=== PATIENT | female | born 1980 | race Caucasian/White ===

== ENCOUNTER 2017-10-26 08:39 | Outpatient (CLI) | payer OTHER | END 2017-10-26 08:40 | disposition home or self-care (01) | LOC: BICULT 08:39 | PROVIDERS: ATTEND Family Medicine | DX: K81.1 Chronic cholecystitis (principal); K80.20 Calculus of gallbladder without cholecystitis without obstruction | CPT/HCPCS: 76700 ==

== ENCOUNTER 2017-12-17 10:31 | Outpatient (CLI) | payer OTHER ==
[2017-12-17 11:08] LABS: #Basophils 0.1 thou/uL (0.0-0.2); #Eosinphils 0.3 thou/uL (0.0-0.7); #Lymphocytes 1.6 thou/uL (1.20-3.40); #Monocytes 0.3 thou/uL (0.11-0.59); #Neutrophils 4.5 thou/uL (1.40-6.50); %Basophils 0.9 % (0.0-1.0); %Eosinophils 3.8 % (0.0-10.0); %Lymphocytes 23.5 % (21.0-51.0); %Monocytes 5.1 % (0.0-10.0); %Neutrophils 66.7 % (42.0-75.0); Hemoglobin 13.5 g/dL (12.0-16.0); Mean Corpuscular HGB CONC 33.6 g/dL (32.0-36.0); Mean Corpuscular Hemoglobin 30.4 pg (27.0-31.0); Mean Corpuscular Volume 90.3 fl (81.0-99.0); Platelet Count 176 thou/uL (130-400); RBC Distribution Width 11.4 % (11.5-14.5); Red Blood Cell (RBC) Count 4.44 mill/uL (4.20-5.40); White Blood Cell (WBC) Count 6.8 thou/uL (4.8-10.8)
[2017-12-17 11:18] LABS: BHCG - Serum Negative (NEGATIVE); Pregs Control Background? CLEAR/WHITE (CLR/WHITE); Pregs Control Bar Appear? YES (CONTROL BAR)
[2017-12-17 11:32] LABS: ALT (SGPT) 15 U/L (8-55); AST (SGOT) 16 U/L (5-34); Albumin 4.6 g/dL (3.5-5.0); Alkaline Phosphatase 67 U/L (40-150); Anion Gap 11 mmol/L (10-20); BUN (Urea Nitrogen) 17 mg/dL (7.0-18.7); Bilirubin, Total 0.6 mg/dL (0.2-1.2); Calc. Creatinine Clearance 0 mL/min (70-130); Calcium 9.6 mg/dL (7.8-10.44); Carbon Dioxide 25 mmol/L (22-29); Chloride 104 mmol/L (98-107); Estimated GFR-MDRD 77; Globulin 3.1 g/dL (2.4-3.5); Glucose 93 mg/dL (70-105); Potassium 4.4 mmol/L (3.5-5.1); Protein, Total 7.7 g/dL (6.0-8.3); Sodium 136 mmol/L (136-145)
== END 2017-12-17 10:32 | disposition home or self-care (01) ==
LOC: LABBT 10:31
PROVIDERS: ATTEND Surgery
DX: Z01.812 Encounter for preprocedural laboratory examination (principal); K80.00 Calculus of gallbladder with acute cholecystitis without obstruction
CPT/HCPCS: 80053; 84703; 85025

== ENCOUNTER 2017-12-21 06:07 | Day surgery (SDC) | payer OTHER ==
[2017-12-17 10:59] VITALS: BMI 24.9
[2017-12-21] MEDS ORDERED: CEFAZOLIN/Water 2 GM/20 ML SYRINGE ONE (06:16)
[2017-12-21] MEDS ORDERED: Fentanyl 100 MCG/2 ML VIAL ONE ×2 (06:26→09:26)
[2017-12-21] MEDS ORDERED: HYDROmorphone 0.5 MG/0.5 ML SYRINGE ONE (06:26)
[2017-12-21] MEDS ORDERED: Iothalamate Meglumine 60% 50 ML VIAL FS ONE (06:30)
[2017-12-21] MEDS ORDERED: Bupivacaine/Epinephrine 0.25% 30 ML VIAL ONE (06:30)
[2017-12-21] MEDS ORDERED: Scopolamine 1.5 mg/72 hour Patch ONE (06:56)
--- NOTE | 2017-12-21 09:24 | RAD ---
INTRAOPERATIVE CHOLANGIOGRAM: Date: 12/21/17 HISTORY: 37-year-old female with history of laparoscopic cholecystectomy. FINDINGS: Single portable fluoroscopic spot film is presented for interpretation. Contrast media is injected in the cystic duct remnant with filling of the common bile duct and common hepatic duct. The intrahepat ic ducts are not completely filled and not imaged. There is a question of a very small filling defect in the distal common bile duct. There is emptying into the duodenum. IMPRESSION: Questionable small filling defect in the distal common bile duct with emptying into the duodenum and no significant proximal dilatation or obstruction. POS: CHAUNCEY
[2017-12-21] MEDS ORDERED: PROPOFOL 200 MG/20 ML VIAL ONE (15:57)
[2017-12-21] MEDS ORDERED: Dexamethasone 20 MG/5 ML VIAL ONE (15:57)
[2017-12-21] MEDS ORDERED: Glycopyrrolate 0.2 MG/ML 5 ML SYRINGE ONE (15:57)
[2017-12-21] MEDS ORDERED: Succinylcholine Chloride 20 MG/ML 10 ml SYRINGE FS ONE (15:57)
[2017-12-21] MEDS ORDERED: Lidocaine 1% PF 5 ML VIAL ONE (15:57)
[2017-12-21] MEDS ORDERED: Ondansetron HCl/PF 4 MG/2 ML Vial ONE (15:57)
--- NOTE | 2017-12-26 09:56 | PDOC.OP ---
Operative Note - Operative Note Operative Note: PROCEDURE: Laparoscopic cholecystectomy with intraoperative cholangiogram SURGEON: Bertha Parker M.D. COTTON BAG SEWER: Roc Don, MS 3 DATE OF PROCEDURE: 12/21/2017 PREOPERATIVE DIAGNOSIS: Cholelithiasis and cholecystitis, possible choledocholithiasis: POSTOPERATIVE DIAGNOSIS: Cholelithiasis and cholecystitis HISTORY: Patient with symptomatic gallstones with possible choledocholithiasis noted on an ultrasound. Recommendation was made to proceed with laparoscopic cholecystectomy with intraoperative cholangiogram. FINDINGS: White walled gallbladder without significant adhesions. Normal intraoperative cholangiogram. PROCEDURE IN DETAIL: After informed consent was obtained and appropriate preoperative antibiotics were administered, the patient was taken to the operating room and placed in the supine position and general endotracheal anesthesia was administered. The stomach was decompressed with an OG tube and the abdomen was prepped and draped in standard sterile fashion. Local anesthesia was infused to the skin and subcutaneous tissues at the umbilical level. A transverse skin incision was made. The fascia was elevated and a Veress needle was placed into the abdominal cavity without difficulty. Opening pressure was less than 5 and carbon dioxide gas easily insufflated to an intra- abdominal pressure of 15, which the patient tolerated well. The Veress needle was withdrawn and a [place] port advanced under direct vision. The abdominal cavity was carefully examined. There was no evidence of Veress needle or of trocar injury. Local anesthesia was infused to the skin and subcutaneous tissues at the epigastric, right upper quadrant, and right lateral abdominal sites and trocars were placed under direct vision of the laparoscope. The fundus of the gallbladder was grasped and retracted superiorly. The infundibulum was grasped and retracted laterally. The serosa was stripped inferiorly at the level of the neck of the gallbladder exposing the cystic duct and artery which were traced clearly to their insertion in the gallbladder. These were dissected free circumferentially and the cystic duct was clipped at the level of the neck of the gallbladder. The cystic artery was clipped but not divided. An incision was made in the cystic duct inferior to the clip and the cystic duct was palpated with no stones palpable. Clear bile was seen to flow from the cystic duct incision. A cholangiogram catheter was introduced and placed into the cystic duct and secured with a clip. A cholangiogram was obtained which showed an adequate length of cystic duct. There was normal filling of the common bile duct with free flow of contrast into the duodenum and no filling defects noted on dynamic real time imaging. There was normal retrograde flow into the common hepatic duct beyond the level of the bifurcation without filling defects. The cholangiogram catheter was removed and the cystic duct clipped below the incision in the cystic duct. The cystic duct was divided between these clips and the previously placed clip. The cystic artery was divided between the previously placed clips. The gallbladder was then dissected free of the gallbladder bed using hook electrocautery. Prior to complete removal of the gallbladder from the gallbladder bed, the area of the cystic duct and artery stumps was examined. The clips were in good position completely across these structures and there was no bleeding and no leakage of bile. The gallbladder was then placed into an EndoCatch bag and drawn out through the epigastric incision. The epigastric trocar was replaced and the operative site easily irrigated to clear. There was no significant bleeding or spillage of bile. The epigastric trocar was removed and the fascia closed under direct laparoscopic vision with a 0 Vicryl suture on a GraNee needle in a figure -of-eight manner with excellent technical result. The right upper quadrant and right lateral abdominal trocars were removed and hemostasis verified. Carbon dioxide gas was allowed to desufflate through the umbilical trocar which was then removed. The skin incisions were closed with 4-0 subcuticular Monocryl sutures and Dermabond dressings were placed. The patient was extubated and taken to the recovery room in good condition. There were no complications. ESTIMATED BLOOD LOSS: Minimal. SPECIMEN : Gallbladder and contents.
== END 2017-12-21 11:41 | disposition home or self-care (01) ==
LOC: SDC 06:07
PROVIDERS: ATTEND Surgery
PROC: BF13YZZ Fluoroscopy of Gallbladder and Bile Ducts using Other Contrast (ICD-10-PCS; principal; 2017-12-21)
PROC: 0FT44ZZ Resection of Gallbladder, Percutaneous Endoscopic Approach (ICD-10-PCS; principal; 2017-12-21)
DX: K80.10 Calculus of gallbladder with chronic cholecystitis without obstruction (principal); J45.909 Unspecified asthma, uncomplicated; K21.9 Gastro-esophageal reflux disease without esophagitis; Z88.8 Allergy status to other drugs, medicaments and biological substances; Z79.899 Other long term (current) drug therapy; Z87.891 Personal history of nicotine dependence
CPT/HCPCS: 47532; 88304; 96374; J0131; J1100; J1170; J1610; J2001; J2405; J2704; J3010; Q9961

== ENCOUNTER 2019-04-28 04:38 | Day surgery (SDC) | payer OTHER ==
[2019-04-28 05:03] VITALS: BP 138/85; TEMP 98.7; BMI 29.8
[2019-04-28] MEDS ORDERED: hydrALAZINE 20 MG/ML VIAL SLOW IVP PRN (05:24)
--- NOTE | 2019-04-28 05:26 | PDOC.LDHP ---
Labor and Delivery H&P Chief complaint: contractions HPI: Patient of Dr campbell Location: [facility] Time: 524 C/O: CTX at 35 weeks 40 yo at 35 weeks 6 days here with irreguylar ctx. No LOF, no VB, good FM. No trauma, no sex in 24 hrs. Review of Systems: complete ROS performed and as per HPI Current gestational age (weeks): 36 (6 days) Due date: 05/27/19 Dating criteria: last menstrual period Grav: 5 Para: 2 OB History Details: All Current complications: gestational diabetes (A1) Abnormal US findings: No Past Medical History: HXASthma and anxiety Current medications: pre-ashley vitamins Previous surgical history: cholecystectomy Allergies/Adverse Reactions: Allergies Allergy/AdvReac Type Severity Reaction Status Date / Time ibuprofen [From Motrin] Allergy Severe Verified 04/28/19 04:58 acetaminophen [From Tylenol] AdvReac Severe Verified 04/28/19 04:58 - Physical Exam Vital signs reviewed and normal: yes Abnormal vital signs: 138/85 General: NAD Heart: RRR Lungs: CTAB Abdomen: gravid FHT: category 1 [facility] contractions every: irregular every 4 min - Assessment threatened PTL at 35 weeks 6 days..states GBS pos - Plan Plan: observation in L&D (chcek CX, observation. If labor diagnosed, will need celestone as under 36 weeks 6 days; and PNG)
--- NOTE | 2019-04-28 05:38 | PDOC.EVN ---
Event Note - Event Note Event Note: Exam per Summer: /-2 So we will observe for 2 hours at least and give celestone as under 36 weeks 6 days...hold on PCN until true labor DX. Effect of celestone on sugars reviewed
[2019-04-28] MEDS ORDERED: Betamet Acet/Betamet Na Ph 30 MG/5 ML VIAL IM SCH (06:00)
--- NOTE | 2019-04-28 07:42 | PDOC.EVN ---
Event Note - Event Note Event Note: recheck by RN: no cervical change NST reactive OK for DC Second steroid tomorrow at [facility]
[2019-04-28] MEDS ORDERED: FLU VACC QS2019-20(6MOS UP)/PF 60 MCG/0.5 ML SYRINGE IM ONE (20:00)
== END 2019-04-28 07:55 | disposition home or self-care (01) ==
LOC: L&D/OP 04:38
PROVIDERS: ATTEND Student in an Organized Health Care Education/Training Program
DX: O47.03 False labor before 37 completed weeks of gestation, third trimester (principal); O24.410 Gestational diabetes mellitus in pregnancy, diet controlled; O09.523 Supervision of elderly multigravida, third trimester; Z3A.35 35 weeks gestation of pregnancy; Z88.6 Allergy status to analgesic agent
CPT/HCPCS: 87077; 87086; J0702

== ENCOUNTER 2019-05-05 10:44 | Day surgery (SDC) | payer OTHER ==
[2019-05-05 11:03] VITALS: BMI 30.4
[2019-05-05] MEDS ORDERED: hydrALAZINE 20 MG/ML VIAL SLOW IVP PRN (12:10)
--- NOTE | 2019-05-05 12:42 | HP ---
PRIMARY OB: Carisa Duke MD CHIEF COMPLAINT: Abdominal pain. HISTORY OF PRESENT ILLNESS: The patient is a 39-year-old, G5, P2 female with an intrauterine at 36 weeks and 6 days, presenting to Labor and Delivery with 7 or 8 hours of uterine contractions. The patient reports she started having contractions about 3 o'clock this morning. She feels them as closest to every 4 to 5 minutes apart. She says that there are pain associated with them, but they have not increased in intensity or frequency since that time. She reports that she was last seen by Dr. Duke on and was 3 cm dilated at that time. The patient denies any vaginal bleeding or leakage of fluid. She denies any recent illness, fever, fall, headache, chest pain, shortness of breath, nausea, vomiting, diarrhea, constipation, hip problems, knee problems, or muscle weakness. She denies vaginal bleeding or leakage of fluid or any new rashes. PAST MEDICAL HISTORY: Asthma, anxiety, A1 gestational diabetes with this controlled, and diagnosed recently with a UTI. PAST SURGICAL HISTORY: Cholecystectomy. ALLERGIES: IBUPROFEN AND ACETAMINOPHEN. SOCIAL HISTORY: Denies drug, alcohol, or tobacco use. MEDICATIONS: Amoxicillin. OB LABS: Unavailable at time of dictation. REVIEW OF SYSTEMS: Per HPI. PHYSICAL EXAMINATION: VITAL SIGNS: Blood pressure is 130/81, heart rate of 105, respiratory rate of 18, saturating 96% on room air, and temperature 98.2. GENERAL: She appears to be in no acute distress. She is alert, oriented, cooperative, and pleasant to interact with. HEAD: Normocephalic and atraumatic. LUNGS: Clear to auscultation bilaterally. HEART: She has regular rate and rhythm. ABDOMEN: Gravid, soft, and nontender. EXTREMITIES: Nontender and nonedematous. CERVICAL: Per nursing staff is 350 and -2 station. heart tracing shows the fetus with a baseline in the 150s with moderate long-term variability, positive 15 x 15 accelerations, no decelerations. Contractions are irregular every 2 to 7 minutes apart, did not appear to be visibly appeared to be painful to the patient. ASSESSMENT AND PLAN: The patient is a 39-year-old female, who is having contractions and may be entering latent labor. Fetus has a category 1 tracing and reactive NST. The patient gave the option to wait an hour and to be reexamined or to be discharged home as the patient's contractions have not intensified over the last 9 hours. The patient plans to return to work, which is in this facility and has been given labor precautions. Job ID: [id number]
== END 2019-05-05 11:30 | disposition home health service (06) ==
LOC: L&D/OP 10:44
PROVIDERS: ATTEND Student in an Organized Health Care Education/Training Program
DX: O47.03 False labor before 37 completed weeks of gestation, third trimester (principal); O24.410 Gestational diabetes mellitus in pregnancy, diet controlled; O99.513 Diseases of the respiratory system complicating pregnancy, third trimester; J45.909 Unspecified asthma, uncomplicated; O23.43 Unspecified infection of urinary tract in pregnancy, third trimester; Z3A.36 36 weeks gestation of pregnancy; Z79.2 Long term (current) use of antibiotics; Z88.8 Allergy status to other drugs, medicaments and biological substances
CPT/HCPCS: 99282

== ENCOUNTER 2019-05-17 19:28 | Day surgery (SDC) | payer OTHER ==
[2019-05-17 20:00] VITALS: BMI 31.2
[2019-05-17] MEDS ORDERED: hydrALAZINE 20 MG/ML VIAL SLOW IVP PRN (20:06)
--- NOTE | 2019-05-17 20:34 | PDOC.FPROB ---
FMR OB H&P: HPI - History of Present Illness Chief Complaint: ctx Indentification: 39 y/o @ 38.4 WGA History of Present Illness: presents for ctx that have been every 3 minutes for the past 2 hours, but prior to that have been on and off all day. Denies any vaginal bleeding, vaginal d/c, LOF. Endorses good movement. Primary Care Physician: Dr. Duke FMR OB H&P: Current - Care : 5 Para: 2021 Gestational age: 38w4d Due date: 05/27/19 - OB Labs Blood type: A RH: positive Antibody Screen: negative HIV: negative RPR: negative HepBsAg: negative Quad screen: negative Urine drug screen: negative Gonorrhea: negative Chlamydia: negative GBS: negative FMR OB H&P: History - Past Medical History PMH: Asthma, GERD - OB History OB History: 2 prior term . 4th degree laceration in 1st delivery of 8 lb baby 2 prior SAB's - Surgical History Sx History: Cholecystectomy - Social History Social History: Denies tobacco, EtOH, or drug use - Family History Family History: DM, HTN, cancer FMR OB H&P: Medications - Current Home Medications: Medication Instructions Recorded Confirmed Type Albuterol Sulfate [Proair HFA] 1 puff INH PRN PRN 12/17/17 05/17/19 History Fexofenadine/Pseudoephedrine 1 each PO DAILY 12/17/17 05/17/19 History [Marianne-D 24 Hour Tablet] Fluticasone/Vilanterol [Breo 1 puff INH DAILY 12/17/17 05/17/19 History Ellipta 200-25 Mcg INH] Pnv No.95/Ferrous Fum/Folic AC 1 each PO DAILY 04/28/19 05/17/19 History [ Formula] Omeprazole Magnesium [Prilosec] 1 pkt PO DAILY 05/05/19 05/17/19 History Allergies/Adverse Reactions: Allergies Allergy/AdvReac Type Severity Reaction Status Date / Time ibuprofen [From Motrin] Allergy Severe Verified 04/28/19 04:58 acetaminophen [From Tylenol] AdvReac Severe Verified 04/28/19 04:58 FMR OB H&P: ROS - Review of Systems General: denies: fever/chills, weight/appetite/sleep changes Eyes: denies: vision changes, double vision ENT: denies: nasal congestion, sore throat Cardiovascular: reports: edema. denies: chest pain Respiratory: denies: cough, shortness of breath Gastrointestinal: reports: nausea. denies: vomiting, diarrhea Genitourinary (Female): reports: contractions. denies: dysuria, hematuria, vaginal discharge, vaginal bleeding, vaginal pressure Musculoskeletal: denies: pain, swelling Neurologic: denies: numbness, weakness Integumentary: denies: itching, rash Hematologic/Lymphatic: denies: prolonged or excessive bleeding, enlarged lymph nodes Psychological: denies: depression, anxiety FMR OB H&P: Vital Signs - Maternal Vital signs: BP 124/77, HR 96, RR 16 - Heart Tones Baseline: 160 Variability: moderate Acceleration: present Deceleration: absent Category: category 1 [place] contractions every: 5-9 minutes FMR OB H&P: Physical Exam - Physical Exam General: NAD, awake, alert and oriented HEENT: normocephalic and atraumatic, MMM, conjunctiva clear, no scleral icterus , grossly normal vision, grossly normal hearing Neck: supple, no LAD Heart: pulses present, other (1+ pedal edema in BLE) General: no respiratory distress Musculoskeletal: normal gait and station, pulses present Neurological: no tremor, no focal deficit Skin: good tugor, capillary refill <2 seconds Lymphatic: no unusual bruising or bleeding, no purpura Psychiatric: intact recent and remote memory, good judgement and insight - Pelvic Exam SVE: /-2 FMR OB H&P: A/P - Problem List (1) Uterine contractions Current Visit: Yes Status: Acute Code(s): RCV1561 - Assessment and Plan: SVE - Pt elidia irregularly -Will recheck in 2 hours and d/c home if no change (2) Term Current Visit: Yes Status: Acute Code(s): Z34.90 - ENCNTR FOR SUPRVSN OF NORMAL , UNSP, UNSP TRIMESTER Assessment and Plan: Plan as above Disposition: Dispo pending next cervical check Discussion: Date/Time: 05/17/192031 This H&P was discussed with Dr. Leon who agrees with the above documentation and plan. Signature: Isabel Bailey MD, PGY-3 Addendum - Attending - Attending Attestation Date/Time: 05/17/192045 I personally evaluated the patient and discussed the management with Dr. Bailey. Will observe the pt. for UCs and cervical change. I agree with the History, Examination, Assessment and Plan documented above.
--- NOTE | 2019-05-17 22:07 | PDOC.BPN ---
<Isabel Bailey - Last Filed: 05/17/19 22:07> - Brief Progress Note Pt cervical check unchanged. Contractions have spaced out and pt is not feeling them very much anymore. Will d/c home with labor precautions <Vidal Leon - Last Filed: 05/17/19 22:17> Addendum - Attending - Attending Attestation Date/Time: 05/17/19 [id number] I personally evaluated the patient and discussed the management with Dr. Bailey. I agree with the Examination, Assessment and Plan documented above.
== END 2019-05-17 22:12 | disposition home or self-care (01) ==
LOC: L&D/OP 19:28
PROVIDERS: ATTEND Student in an Organized Health Care Education/Training Program
DX: O60.03 Preterm labor without delivery, third trimester (principal); O99.513 Diseases of the respiratory system complicating pregnancy, third trimester; J45.909 Unspecified asthma, uncomplicated; Z3A.38 38 weeks gestation of pregnancy; Z88.6 Allergy status to analgesic agent
CPT/HCPCS: 99283

== ENCOUNTER 2019-05-24 05:30 | Inpatient (IN) | payer OTHER ==
[2019-05-24] MEDS ORDERED: Penicillin G Potassium 5 MILL.UNITS in Sodium Chloride 0.9% 100 ML IVPB SCH (06:00)
[2019-05-24] MEDS ORDERED: Diphenoxylate HCl/Atropine Tablet PO PRN (06:04)
[2019-05-24] MEDS ORDERED: Ondansetron PF 4 MG/2 ML Vial IVP PRN ×2 (06:04→10:50)
[2019-05-24] MEDS ORDERED: Carboprost 250 MCG/ML AMP IM PRN (06:04)
[2019-05-24] MEDS ORDERED: Misoprostol 200 MCG TAB PR PRN (06:04)
[2019-05-24] MEDS ORDERED: Acetaminophen 500 MG TAB PO PRN (06:04)
[2019-05-24] MEDS ORDERED: Butorphanol Tartrate 1 MG/ML VIAL SLOW IVP PRN (06:04)
[2019-05-24] MEDS ORDERED: NS / Oxytocin 40 units/1000ml 1,000 ML IV PRN (06:04)
[2019-05-24] MEDS ORDERED: Methylergonovine 0.2 MG/ML VIAL IM PRN (06:04)
[2019-05-24] MEDS ORDERED: Lidocaine 1% (PF) 30 ML VIAL SC PRN (06:04)
[2019-05-24] MEDS ORDERED: NS w/ Oxytocin 10 units 500 ML IV SCH (06:04)
[2019-05-24] MEDS ORDERED: Promethazine HCl 25 MG/ML VIAL IM PRN ×2 (06:04→10:50)
[2019-05-24] MEDS ORDERED: hydrALAZINE 20 MG/ML VIAL SLOW IVP PRN ×2 (06:04→18:33)
[2019-05-24 06:43] VITALS: BMI 31.2
[2019-05-24 06:48] LABS: Hemoglobin 9.5 g/dL (12.0-16.0); Mean Corpuscular HGB CONC 33.4 g/dL (32.0-36.0); Platelet Count 182 thou/uL (130-400); RBC Distribution Width 14.3 % (11.5-14.5); Red Blood Cell (RBC) Count 3.78 mill/uL (4.20-5.40); White Blood Cell (WBC) Count 9.1 thou/uL (4.8-10.8)
[2019-05-24] MEDS: Lactated Ringer's 1,000 ML IV SCH ×2 (06:50→12:20)
[2019-05-24 07:25] LABS: HBSAg Index 0.17 S/CO (0-0.99); Hep B Surf Ag Non-Reactive S/CO (NonReactive)
[2019-05-24 07:26] LABS: Syphilis Antibody Nonreactive (Nonreactive); Syphilis Antibody Index 0.05 S/CO (<1.00 Non-Reactive)
[2019-05-24] MEDS ORDERED: Fentanyl 4 mcg/Bup 0.1% Cadd 100 ML ONE (08:52)
--- NOTE | 2019-05-24 08:59 | PDOC.LDHP ---
Labor and Delivery H&P Chief complaint: scheduled induction HPI: 39yo at 39w3d by LMP here for IOL due to GDM. No complaints. Current gestational age (weeks): 39 Due date: 05/27/19 Dating criteria: last menstrual period Grav: 5 Para: 2 Current complications: gestational diabetes (diet controlled) Abnormal US findings: No Past Medical History: asthma, gerd Current medications: pre-ashley vitamins, other (breo ellipta, suni) Previous surgical history: cholecystectomy (, D&C) Allergies/Adverse Reactions: Allergies Allergy/AdvReac Type Severity Reaction Status Date / Time ibuprofen [From Motrin] Allergy Severe Verified 05/24/19 06:21 acetaminophen [From Tylenol] AdvReac Severe Verified 05/24/19 06:21 midazolam [From Versed] AdvReac Intermediate Verified 05/24/19 06:21 Social history: none - Physical Exam Vital signs reviewed and normal: yes General: NAD Heart: RRR Lungs: CTAB Abdomen: gravid Extremeties: no edema FHT: category 1 [place] contractions every: 4min - Vaginal Exam cm dilated: 4 Effacement: 50% Station: -2 (arom clear) - OB Labs Blood type: A RH: positive Antibody Screen: negative HIV: negative RPR: negative HEPSAg: negative 1 hour GCT: positive 3 hour GTT: positive for GDM GBS: positive Urine drug screen: negative Rubella: immune - Assessment L&D Assessment: medically indicated induction - Plan Plan: admit to L&D, labor augmentation if indicated, GBS antibiotic prophylaxis , informed consent obtained, anesthesia consult for pain management -: accuchecks for GDM
[2019-05-24] MEDS ORDERED: Acetaminophen 325 MG TAB PO PRN (10:50)
[2019-05-24] MEDS ORDERED: ePHEDrine/0.9% NaCl/PF SYRINGE 50 mg/10 ml SLOW IVP PRN (10:50)
[2019-05-24] MEDS ORDERED: Naloxone HCl 0.4 mg/ml Vial IVP PRN ×2 (10:50)
[2019-05-24] MEDS ORDERED: diphenhydrAMINE 50 MG/ML VIAL IVP PRN (10:50)
[2019-05-24] MEDS ORDERED: Lactated Ringer's 500 ML IV PRN (10:50)
[2019-05-24] MEDS ORDERED: Communication Order-Pharmacy FS SCH (11:00)
[2019-05-24] MEDS ORDERED: Fentanyl 4 mcg/Bupivacaine 0.1% Cassette 100 ML EPIDURAL SCH (11:00)
[2019-05-24] MEDS ORDERED: Bupivacaine 0.25% HCL 30 ML VIAL ONE (11:11)
[2019-05-24] MEDS: Penicillin G 2.5 MILL.units 2.5 MILL.UNITS in Premix Bag 1 BAG IVPB SCH ×2 (12:16→17:44)
--- NOTE | 2019-05-24 12:59 | PDOC.LDPN ---
Labor & Delivery Progress Note - Subjective Subjective: comfortable - Objective Vital signs reviewed and normal: yes General: NAD Uterine fundus: non tender Dilation: 7 Effacement: 90% Station: -1 FHT: category 1 [place] contractions every: 3-4min Plan: labor augmentation
[2019-05-24 14:12] LABS: Actual Bicarbonate (HCO3a) 19.3 mEq/L (22-28); Analyzer IN Cardio OR; Base Excess (BEa) -6.6 mEq/L (-2.0 to +3.0)
--- NOTE | 2019-05-24 14:18 | PDOC.OPDEL ---
OB Operative/Delivery Note Delivery Dr/Surgeon: Srikanth Assist: n/a Pre-Delivery Diagnosis: medically indicated induction (GDM), non-reassuring tracing Procedure/Post Delivery Dx: operative vaginal delivery (VAVD) Weeks gestation: 39 Anesthesia: epidural - Findings A Sex: female - Additional Findings/Plan Placenta delivered: spontaneous Repaired Obstetrical Laceration: episiotomy (mediolateral 2nd degree repaired with 2-0 vicryl) Estimated blood loss: 200cc Compilations/Other Findings: terminal bradycardia to 50s, difficulty delivering head with ritgens, mediolateral episiotomy cut, continued difficulty delivering head with ritgens, vacuum applied, see procedure checklist for full details. Head delivered with one pull. Shoulders impacted, right shoulder anterior, delivered with suprapubic and elpidio, total time on perineum < 1min. floppy, to warmer where natali awaited. Post delivery plan: routine recovery
[2019-05-24] MEDS ORDERED: Milk Of Magnesia 30 ML UDCUP PO PRN (18:33)
[2019-05-24] MEDS ORDERED: Bisacodyl 10 MG SUPP PR PRN (18:33)
[2019-05-24] MEDS ORDERED: NS / Oxytocin 40 units/1000ml 1,000 ML IV SCH (18:45)
[2019-05-24] MEDS ORDERED: Benzocaine-Menthol 82.5 ML CAN TOP PRN (21:27)
[2019-05-24] MEDS: Docusate Calcium (SURFAK) 240 MG CAP PO SCH (21:33)
[2019-05-25 05:04] LABS: Hemoglobin 8.3 g/dL (12.0-16.0)
[2019-05-25] MEDS ORDERED: Ferrous Sulfate 325 MG TAB PO SCH (08:00)
[2019-05-25] MEDS: traMADol HCl 50 MG TAB PO PRN ×2 (08:34→15:01)
[2019-05-25] MEDS: Docusate Calcium (SURFAK) 240 MG CAP PO SCH (08:34)
[2019-05-25] MEDS ORDERED: Adacel (T-DAP) 0.5 ML SYRINGE IM ONE (09:00)
[2019-05-25 11:53] VITALS: BP 129/70; TEMP 97.8
--- NOTE | 2019-05-25 21:45 | DIS ---
DATE OF ADMISSION: 05/24/2019 DATE OF DISCHARGE: 05/25/2019 ADMITTING DIAGNOSES: 1. Intrauterine at 39 weeks. 2. Elective induction of labor. 3. Anemia, chronic. DISCHARGE DIAGNOSES: 1. Intrauterine at 39 weeks. 2. Elective induction of labor. 3. Anemia, chronic. PROCEDURE: Vacuum-assisted vaginal delivery for shoulder dystocia. HOSPITAL COURSE: The patient is a 39-year-old female, who was admitted yesterday with an intrauterine at 39 weeks and 3 days for an elective induction of labor. Her hospital course was complicated by shoulder dystocia and resulting in a vacuum-assisted vaginal delivery. This morning is day 1. The patient reports she is tolerating p.o., having good pain control, and is having decreased lochia, and tolerating p.o. on her own and voiding on her own. PHYSICAL EXAMINATION: VITAL SIGNS: Today, blood pressure is 123/70, temperature 98.3, pulse of 93, respiratory rate 18. GENERAL: She appears to be in no acute distress. She is alert, oriented, cooperative, and pleasant to interact with. Fundus is firm at the umbilicus. EXTREMITIES: Nontender with minimal symmetrical edema. LABORATORY DATA: Postdelivery is hemoglobin is 8.3, hematocrit 24.7. DISPOSITION: The patient is being discharged to home. DISCHARGE INSTRUCTIONS: She has instructions to follow up with Dr. Duke in 6 weeks or sooner if she experiences fever, increasing pain or bleeding. The patient will be discharged with ibuprofen and [id number] iron. Job ID: [id number]
--- NOTE | 2019-05-28 04:53 | PQF ---
PASCUAL [place]OV[place] JANELLE [id number] [address] [place] [address] [id number] CLINICAL DOCUMENTATION CLARIFICATION FORM: POST DISCHARGE Addendum to original discharge summary date: ____ Late entry note date: __ DATE: 05/28/19 ATTN: Carisa Patterson Please exercise your independent, professional judgment in responding to the clarification form. Clinical indicators are provided on the bottom of this form for your review Please check appropriate box(s): [ ] Acute blood loss anemia [ ] Post-op anemia related to acute blood loss (X ] Chronic Anemia: [ ] Blood loss [ ] Hemolytic [ ] Simple [ ] Due to Vitamin B12 Deficiency [ X] Other _iron deficiency [ ] Anemia of Chronic Disease (please specify) [ ] Other diagnosis [ ] Unable to determine In addition, please specify: Present on Admission (POA): [ ] Yes [ ] No [ ] Unable to determine For continuity of documentation, please document condition throughout progress notes and discharge summary. Thank You. CLINICAL INDICATORS - SIGNS / SYMPTOMS / LABS OB Operative and Delivery Note p1 05/24 Estimated blood loss 200cc Laboratory Hematology 05/24 Hgb 9.5, Hct 28 .3 Laboratory Hematology 05/25 Hgb 8.3, Hct 24.7 RISK FACTORS OB Operative and Delivery Note p1 05/24 s/p VAVD OB Operative and Delivery Note p1 05/24 s/p Episiotomy with 2nd degree repaired Discharge summary 05/25- Chronic Anemia TREATMENTS: SEP 16 Ferrous Sulfate 325 Laboratory Hematology ordered 05/24 (This form is maintained as a part of the permanent medical record) 2014 [employer]. All Rights Reserved [email or web address] [not provided] MTDD
== END 2019-05-25 16:30 | disposition home or self-care (01) | DRG 807 ==
LOC: L&D 05:52 → 3SE 17:09
PROVIDERS: ADMIT Student in an Organized Health Care Education/Training Program; ATTEND Student in an Organized Health Care Education/Training Program
PROC: 10D07Z6 Extraction of Products of Conception, Vacuum, Via Natural or Artificial Opening (ICD-10-PCS; principal; 2019-05-24)
PROC: 0W8NXZZ Division of Female Perineum, External Approach (ICD-10-PCS; 2019-05-24)
PROC: 10907ZC Drainage of Amniotic Fluid, Therapeutic from Products of Conception, Via Natural or Artificial Opening (ICD-10-PCS; 2019-05-24)
PROC: 3E033VJ Introduction of Other Hormone into Peripheral Vein, Percutaneous Approach (ICD-10-PCS; 2019-05-24)
DX: O24.420 Gestational diabetes mellitus in childbirth, diet controlled (principal); Z37.0 Single live birth; Z3A.39 39 weeks gestation of pregnancy; O36.8330 Maternal care for abnormalities of the fetal heart rate or rhythm, third trimester, not applicable or unspecified; O66.0 Obstructed labor due to shoulder dystocia; Z88.6 Allergy status to analgesic agent; Z88.8 Allergy status to other drugs, medicaments and biological substances; Z90.49 Acquired absence of other specified parts of digestive tract; O99.02 Anemia complicating childbirth; O99.513 Diseases of the respiratory system complicating pregnancy, third trimester; O99.613 Diseases of the digestive system complicating pregnancy, third trimester; J45.909 Unspecified asthma, uncomplicated; K21.9 Gastro-esophageal reflux disease without esophagitis; D50.9 Iron deficiency anemia, unspecified
CPT/HCPCS: 36415; 51702; 82805; 85014; 85018; 85027; 86780; 86850; 86900; 86901; 87340; J2540; J2590; J3490; S0020